=== PATIENT | male | born 1995 | race American Indian/Alaskan Native ===

== ENCOUNTER 2017-12-12 11:30 | Emergency (ER) | payer SELFPAY ==
[2017-12-12 11:58] VITALS: BP 121/86
[2017-12-12] MEDS ORDERED: DELTASONE PO ONE (14:31)
[2017-12-12] MEDS ORDERED: DUONEB *Not for PRN Use IH ONE (14:31)
--- NOTE | 2017-12-12 14:31 | Emergency Department Report ---
Minor Respiratory - HPI Chief Complaint: Upper Respiratory Infection Stated Complaint: CHEST/THROAT PAIN Time Seen by Provider: 12/12/17 14:10 Duration: 5 Days Severity: severe (8/10) Minor Respiratory: Yes Rhinorrhea (congestion), Yes Able to Tolerate Fluids, Yes Cough (dry cough), No Sore Throat, No Ear Pain, No Sick Contacts (history of bronchitis), No Hemoptysis, No Chest Pain, No Shortness of Breath, No Fever Other History: This is a 22-year-old male here report that he has productive cough with green sputum chest soreness with cough and that is 8/10. No pain without coughing. Chest congestion and that he vomited 1 this morning. Denies any headache, denies any shortness of breath. [id number] cough and cold is not helping. Pain is alleviated when stopped cough and exacerbated by cough ED Review of Systems ROS: Stated complaint: CHEST/THROAT PAIN Other details as noted in HPI Constitutional: denies: chills, fever Eyes: denies: eye pain, eye discharge, vision change ENT: congestion. denies: ear pain, throat pain, epistaxis Respiratory: cough, wheezing. denies: shortness of breath, SOB with exertion, SOB at rest, stridor Cardiovascular: denies: chest pain, palpitations, edema, syncope Endocrine: no symptoms reported Gastrointestinal: denies: nausea, vomiting Musculoskeletal: denies: back pain, joint swelling, arthralgia, myalgia Skin: denies: rash, lesions Neurological: denies: headache, weakness ED Past Medical Hx - Past Medical History Previous Medical History?: Yes Additional medical history: bronchitis - Surgical History Past Surgical History?: Yes Additional Surgical History: right wrist - Family History Family history: hypertension - Social History Smoking Status: Current Every Day Smoker Substance Use Type: Alcohol, Marijuana - Medications Home Medications: Home Medications Medication Instructions Recorded Confirmed Last Taken Type ALBUTEROL Inhaler (OR & NICU) 2 puff IH Q6H PRN #1 inhalation 12/12/17 Unknown Rx [ProAir HFA Inhaler] Azithromycin [Zithromax Z-BUTCH] 250 mg PO DAILY 5 Days #1 pkg 12/12/17 Unknown Rx Cetirizine HCl [ZyrTEC] 10 mg PO QAM 14 Days #14 capsule 12/12/17 Unknown Rx Fluticasone [Flonase] 1 spray NS QDAY 14 Days #1 bottle 12/12/17 Unknown Rx methylPREDNISolone [Medrol Dose 4 mg PO DAILY #1 tab.ds.pk 12/12/17 Unknown Rx Butch] Minor Respiratory Exam - Exam General: Vital signs noted. No distress. Alert and acting appropriately. This is a 22-year-old male well-nourished well-developed. Patient is in no acute distress HEENT: Yes Moist Mucous Membranes (uvula midline and oral airways patent), Yes Rhinorrhea (congested with clear drainage), No Pharyngeal Erythema, No Pharyngeal Exudates, No Conjuctival Injection, No Frontal Tenderness, No Maxillary Tenderness Ear: Neither TM Bulge (congested without erythema), Neither TM Erythema, Neither EAC Pain, Neither EAC Discharge Neck: Yes Supple (full range of motion and no C-spine tenderness), No Adenopathy Lungs: Yes Wheezes (scattered wheezes and upper lung sharpe), Yes Ronchi ( rhonchi cleared with cough and), Yes Cough (dry cough), No Stridor, No Labored Respirations, No Retractions, No Use of Accessory Muscles, No Other Abnormal Lung Sounds Heart: Yes Regular (right), No Murmur Abdomen: No Tenderness (nontender to palpate in all quadrants.), No Peritoneal Signs, No Normal Bowel Sounds (normal bowel sounds in all quadrants) Skin: No Rash, No Edema Neurologic: Alert and oriented, no deficits. Alert and oriented 3, normal gait Musculoskeletal: Unremarkable. No cce. + 2 pulses in all extremities, no neurovascular compromise. Full range of motion to all extremities ED Course Vital Signs 12/12/17 11:50 Temperature 98.1 F Pulse Rate 69 Respiratory 20 Rate Blood Pressure 121/86 O2 Sat by Pulse 100 Oximetry - Reevaluation(s) Reevaluation #1: 12/12/17 15:23 Patient received DuoNeb 1 treatment in emergency room with clear lung sounds. He received Deltasone 60 mg by mouth. ED Medical Decision Making - Radiology Data Radiology results: report reviewed, image reviewed interpreted by me: Reviewed them myself and Dr. Carter in no abnormalities noted. Still awaiting radiology report Chest x-ray 2 views chest dictated by radiologist report reviewed by myself in no acute findings. Patient: WES METZGER MR#: [id number] : 1995 Acct:[id number] Age/Sex: 22 / M ADM Date: 12/12/17 Loc: ED Attending Dr: Ordering Physician: ROEL ACEVEDO Date of Service: 12/12/17 Procedure(s): XR chest routine 2V Accession Number(s): [id number] cc: ROEL ACEVEDO Fluoro Time In Minutes: FINAL REPORT EXAM: XR CHEST ROUTINE 2V HISTORY: cough, productive, chest pain TECHNIQUE: 2 view examination of the chest PRIORS: None FINDINGS: There is no visible pulmonary consolidation, pleural effusion, or pneumothorax. Cardiac silhouette size is normal without vascular congestion. No visible acute displaced fracture in the regional skeleton. IMPRESSION: No evidence of acute cardiopulmonary disease Transcribed By: BAL Dictated By: MELISA POP MD Electronically Authenticated By: MELISA POP MD Signed Date/Time: 12/12/171527 DD/ 27 TD/TT: 12/12/171527 - Medical Decision Making This 22-year-old male here report that he has cough with phlegm chest discomfort 5 days and he has a history of bronchitis like to be checked. Radiology report: Chest x-ray dictated by radiologist and reviewed by myself. No acute findings noted. Assessment/plan 1: Acute bronchitis-patient treated with DuoNeb 1 nebulizer treatment in the emergency room and prednisone 60 mg by mouth and open reevaluation lungs sounds are clear and he said he feels better. 2: URI with cough and congestion-Will discharge home in Flonase and Zyrtec I discussed the patient's diagnosis and treatment plan, x-ray report, medication and to follow up with primary care physician. Patient does not have a primary care physician so for him to [facility]. Patient is stabilized on better, no pain and discharged home with Flonase, Zyrtec, albuterol, Z-Butch and Medrol Dosepak - Differential Diagnosis PNA, bronchitis, upper respiratory with cough and congestion Critical care attestation.: If time is entered above; I have spent that time in minutes in the direct care of this critically ill patient, excluding procedure time. ED Disposition Clinical Impression: URI with cough and congestion Acute bronchitis Qualifiers: Bronchitis organism: unspecified organism Qualified Code(s): J20.9 - Acute bronchitis, unspecified Disposition: DC-01 TO HOME OR SELFCARE Is pt being admited?: No Does the pt Need Aspirin: No Condition: Stable Instructions: Upper Respiratory Infection (ED), Acute Bronchitis (ED) Additional Instructions: Follow-up with [facility] in 2-3 days Take Flonase and Zyrtec for nasal congestion Increase her fluid intake Take albuterol, Z-Butch, Medrol Dosepak for bronchitis Please return to emergency room, if your symptoms worsen otherwise follow-up with your PCP in 2 days. Prescriptions: ALBUTEROL Inhaler (OR & NICU) [ProAir HFA Inhaler] 2 puff IH Q6H PRN #1 inhalation PRN Reason: Shortness Of Breath Azithromycin [Zithromax Z-BUTCH] 250 mg PO DAILY 5 Days #1 pkg Cetirizine HCl [ZyrTEC] 10 mg PO QAM 14 Days #14 capsule Fluticasone [Flonase] 1 spray NS QDAY 14 Days #1 bottle methylPREDNISolone [Medrol Dose Butch] 4 mg PO DAILY #1 tab.ds.pk Referrals: [facility] [Outside] - 2-3 Days Forms: Work/School Release Form(ED)
--- NOTE | 2017-12-12 15:29 | XRay Report ---
FINAL REPORT EXAM: XR CHEST ROUTINE 2V HISTORY: cough, productive, chest pain TECHNIQUE: 2 view examination of the chest PRIORS: None FINDINGS: There is no visible pulmonary consolidation, pleural effusion, or pneumothorax. Cardiac silhouette size is normal without vascular congestion. No visible acute displaced fracture in the regional skeleton. IMPRESSION: No evidence of acute cardiopulmonary disease
== END 2017-12-12 15:57 | disposition home or self-care (01) ==
LOC: ED 11:30
DX: J20.9 Acute bronchitis, unspecified (principal); J06.9 Acute upper respiratory infection, unspecified; F17.200 Nicotine dependence, unspecified, uncomplicated; F12.10 Cannabis abuse, uncomplicated
CPT/HCPCS: 71046; 93005; 93010; 94640; 99283